=== PATIENT | male | born 1940 | race Caucasian/White ===

== ENCOUNTER 2016-10-17 09:05 | Inpatient (IN) | payer MEDICARE, OTHER ==
[2016-10-15 17:44] LABS: HEMATOCRIT 43.2 % (40.0-51.0); HEMOGLOBIN 14.8 g/dL (13.6-17.8)
[2016-10-15 17:59] LABS: BUN (BLOOD UREA NITROGEN) 17 MG/DL (6-23); CALCIUM, SERUM 8.6 MG/DL (8.5-10.4); CHLORIDE, SERUM 106 MMOL/L (96-112); CO2 (CARBON DIOXIDE) 29 MMOL/L (24-34); CREATININE 0.76 MG/DL (0.70-1.30); GFR AFRICAN AMERICAN 102 ML/MIN (>=60); GFR NON AFRICAN AMERICAN 88 ML/MIN (>=60); GLUCOSE, SERUM 80 MG/DL (60-99); POTASSIUM, SERUM 3.9 MMOL/L (3.5-5.3); SODIUM, SERUM 142 MMOL/L (135-148)
--- NOTE | ~2016-10-17 | OP ---
Record Of Operation [facility] [address] [place]. 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 PROCEDURE: 1. Ultrasound-guided percutaneous access, bilateral common femoral arteries. 2. Catheter placed in the aortic arch from bilateral femoral access. 3. Arch aortogram. 4. Endovascular repair of thoracic aortic aneurysm (Medtronic Valiant 28 x 20 x 100 proximal main device). SURGEON: Jose Wallace M.D. [employer]: Debi. ANESTHESIA: General endotracheal. ESTIMATED BLOOD LOSS: 30 mL. CONTRAST: 130 mL. IV FLUIDS: 500 mL. COMPLICATIONS: None. INDICATIONS: Mr. Posada is a pleasant 76-year-old male with newly diagnosed large saccular aneurysm of the distal aortic arch, proximal descending thoracic aorta. Due to saccular in nature and large size, he is recommended for endovascular repair. DETAILS OF PROCEDURE: After informed consent was obtained, the patient was brought to the endovascular suite and placed in supine position. After administration of anesthesia, he was intubated. He was prepped and draped in the usual sterile fashion. A time-out was performed. I commenced the procedure with ultrasound-guided percutaneous access of right common femoral artery. A permanent image of the artery documenting patency was saved and stored in the patient's chart. I accessed with a micropuncture needle and passed a micropuncture wire, confirmed intra-arterial under fluoroscopy. I then made a small cutdown incision overlying the femoral artery. I then placed a micropuncture sheath and a Bentson wire. I then pre-dilated the area with a 6-Chilean sheath. I then placed 2 ProGlide closure devices in the preclose technique. We systemically heparinized. I then placed an 11-Chilean sheath. I then used ultrasound guidance to percutaneously access the left common femoral artery, again saving an image of the artery documenting patency. I accessed the Record Of Operation [facility] [address] [place]. [address] NAME: ROSANGELA POSADA : 38 STATUS : DIS IN PAT#: [id number] AGE: 76 ADM/REG DATE : 10/17/16 MR#: [id number] REPORT SERV DATE: 10/19/16 DICTATED BY: JOSE WALLACE. DATE: 10/19/16 REPORT STATUS : Draft TRANSCRIBED BY: MODL DATE: 10/19/16 micropuncture needle and micropuncture wire, then upsized to a 5-Chilean sheath over a Bentson wire. Bentson wire and Hugoton flush catheter were advanced to the left femoral access up into the aortic arch. BER2 and Bentson wire were advanced to the right femoral access, then exchanged the Bentson wire for a Lunderquist wire. Arch aortogram was performed, which showed a patent nonaneurysmal proximal aortic arch. It was a type 3 arch. There was a bovine-like arch vessel configuration with wide patency of all the arch vessels. Saccular aneurysm was clearly demonstrated in the distal aortic arch and proximal descending thoracic aorta without evidence of extravasation or dissection. After that, based on a preoperative and intraoperative measurements, we selected a 28 x 20 x 100 Medtronic Valiant proximal main device. This was delivered just distal to the left subclavian artery without difficulty. We gently post dilated the proximal and distal fixation sites with a Reliant balloon. Repeat contrast injection shows perfect placement of the stent with no impingement of flow on the subclavian artery and exclusion of the aneurysm. Satisfied with that, wires and catheters were removed. Right femoral access site was successfully closed with the ProGlide closure devices in the preclose technique. Incision was closed with 4-0 Monocryl and Dermabond. Left femoral access was also closed with ProGlide closure. Sterile dressings were applied. The patient tolerated the procedure well with no complications. I was present for his entire case as dictated. KANDICE/MARGARETH Jose Wallace M.D. / [id number] CC: Jose W RodrigoDanie deal III, M.D.
[~2016-10-17 09:05] MED LIST: AMB10 PO; ATV1 PO; CO Q-1030 MG PO; FISH OIL300 MG PO; FLOMAX4 PO; LIPITOR40 PO; LOP25 PO; NEUR600 PO; OPANA5 MG PO; PLAVIX PO; PRILO PO; PROSTATE SUPPORT; TRINTELLIX5 MG PO; VITAMIN D31000 UNIT PO
[2016-10-18 05:23] LABS: BASOPHILS 0.4 %; BASOPHILS ABSOLUTE 0.03 10/3/uL (0.0-0.16); EOSINOPHILS 2.7 %; EOSINOPHILS ABSOLUTE 0.22 10/3/uL (0.0-0.53); HEMATOCRIT 40.9 % (40.0-51.0); HEMOGLOBIN 13.9 g/dL (13.6-17.8); IMMATURE GRANULOCYTES 0.2 %; IMMATURE GRANULOCYTES ABSOLUTE 0.02 10/3/uL (0.0-0.11); LYMPHOCYTES 12.6 %; LYMPHOCYTES ABSOLUTE 1.02 10/3/uL (0.67-4.30); MEAN CORPUSCULAR HEMOGLOB 31.3 pg (26.0-34.0); MEAN CORPUSCULAR VOLUME 92.1 fL (80-100); MEAN PLATELET VOLUME 9.3 fL (9.2-13.0); MONOCYTES 11.7 %; MONOCYTES ABSOLUTE 0.95 10/3/uL (0.21-1.20); NEUTROPHILS 72.4 %; NEUTROPHILS ABSOLUTE 5.85 10/3/uL (2.02-8.40); PLATELET COUNT 190 10/3/uL (150-400); RBC DISTRIBUTION WIDTH 13.7 % (12.0-16.0); RED CELL COUNT 4.44 10/6/uL (4.7-6.1); WHITE BLOOD CELLS 8.1 10/3/uL (4.5-10.5)
[2016-10-18 05:24] LABS: MANUAL DIFF NO %
[2016-10-18 05:41] LABS: CHLORIDE, SERUM 107 MMOL/L (96-112); CO2 (CARBON DIOXIDE) 26 MMOL/L (24-34); CREATININE 0.72 MG/DL (0.70-1.30); GFR AFRICAN AMERICAN 104 ML/MIN (>=60); GFR NON AFRICAN AMERICAN 90 ML/MIN (>=60); GLUCOSE, SERUM 95 MG/DL (60-99); POTASSIUM, SERUM 3.8 MMOL/L (3.5-5.3); SODIUM, SERUM 143 MMOL/L (135-148)
[2016-10-18 05:42] LABS: BUN (BLOOD UREA NITROGEN) 11 MG/DL (6-23)
[2016-10-19 04:06] LABS: BASOPHILS 0.3 %; BASOPHILS ABSOLUTE 0.02 10/3/uL (0.0-0.16); EOSINOPHILS 2.3 %; EOSINOPHILS ABSOLUTE 0.18 10/3/uL (0.0-0.53); HEMATOCRIT 41.2 % (40.0-51.0); IMMATURE GRANULOCYTES 0.3 %; IMMATURE GRANULOCYTES ABSOLUTE 0.02 10/3/uL (0.0-0.11); LYMPHOCYTES 14.6 %; LYMPHOCYTES ABSOLUTE 1.13 10/3/uL (0.67-4.30); MEAN CORPUSCULAR VOLUME 91.4 fL (80-100); MEAN PLATELET VOLUME 9.3 fL (9.2-13.0); MONOCYTES 14.6 %; MONOCYTES ABSOLUTE 1.13 10/3/uL (0.21-1.20); NEUTROPHILS 67.9 %; NEUTROPHILS ABSOLUTE 5.28 10/3/uL (2.02-8.40); PLATELET COUNT 183 10/3/uL (150-400); RBC DISTRIBUTION WIDTH 13.5 % (12.0-16.0); RED CELL COUNT 4.51 10/6/uL (4.7-6.1); WHITE BLOOD CELLS 7.8 10/3/uL (4.5-10.5)
[2016-10-19 04:07] LABS: MANUAL DIFF NO %
[2016-10-19 04:17] LABS: BUN (BLOOD UREA NITROGEN) 11 MG/DL (6-23); CALCIUM, SERUM 8.1 MG/DL (8.5-10.4); CHLORIDE, SERUM 107 MMOL/L (96-112); CO2 (CARBON DIOXIDE) 28 MMOL/L (24-34); CREATININE 0.81 MG/DL (0.70-1.30); GFR AFRICAN AMERICAN 99 ML/MIN (>=60); GFR NON AFRICAN AMERICAN 86 ML/MIN (>=60); POTASSIUM, SERUM 3.5 MMOL/L (3.5-5.3); SODIUM, SERUM 143 MMOL/L (135-148)
[2016-10-19 04:18] LABS: GLUCOSE, SERUM 116 MG/DL (60-99)
== END 2016-10-19 14:21 | disposition home or self-care (01) | DRG 221 ==
LOC: SDC/OF 09:05 → PACU 12:44 → CVICU 14:25
PROVIDERS: Surgery
PROC: 02VW3DZ Restriction of Thoracic Aorta, Descending with Intraluminal Device, Percutaneous Approach (ICD-10-PCS; principal; 2016-10-17 11:15)
PROC: B41D1ZZ Fluoroscopy of Aorta and Bilateral Lower Extremity Arteries using Low Osmolar Contrast (ICD-10-PCS; 2016-10-17 11:15)
DX: I71.2 Thoracic aortic aneurysm, without rupture (principal); I25.10 Atherosclerotic heart disease of native coronary artery without angina pectoris; Z95.1 Presence of aortocoronary bypass graft; I95.81 Postprocedural hypotension
CPT/HCPCS: 33881; 36200; 36415; 71010; 75957; 76937; 80048; 83735; 85014; 85018; 85025; 86850; 86870; 86900; 86901; 86902; 86920; 86922; 87641; 93005; A9270-GY; C1725; C1751; C1760; C1769; C1876; C1894; J0690; J1170; J2250; J2270; J2370; J2405; J2710; J2720; J3010; P9045; Q9966